=== PATIENT | female | born 1970 | race Caucasian/White ===

== ENCOUNTER 2018-09-13 11:00 | Emergency (ER) | payer BC ==
--- NOTE | 2018-09-13 12:17 | EDM.PDOC ---
ED HPI GENERAL MEDICAL PROBLEM - General Chief Complaint: General Stated Complaint: LEFT HAND REDNESS AND SWELLING Time Seen by Provider: 09/13/18 11:30 Source of Information: Reports: Patient History Limitations: Reports: No Limitations - History of Present Illness INITIAL COMMENTS - FREE TEXT/NARRATIVE: 48 YO WM presents to ER complaining of left hand swelling and redness x 2 days after getting scratched by her cat. Pt reports the cat is up to date on immunizations. Pt reports redness and swelling are circumferential to left hand excluding wrist and 1st-3rd fingers. Pt denies fever/chills, arm pain, or any injury to hand other than cat scratch. Onset Date: 09/11/18 Duration: Day(s): (2) Location: Reports: Upper Extremity, Left Quality: Reports: Ache Severity: Mild Improves with: Reports: None Worsens with: Reports: None Associated Symptoms: Reports: No Other Symptoms. Denies: Fever/Chills Left Hand Pain Score (Numeric/FACES): 5 - Related Data Allergies Allergy/AdvReac Type Severity Reaction Status Date / Time codeine Allergy Hives Verified 09/13/18 11:23 Home Meds: Home Meds Amoxicillin/Potassium Clav [Augmentin 875-125 Tablet] 1 each PO BID #14 tablet 09/13/18 [Rx] Divalproex Sodium [Divalproex Sodium ER] 500 mg PO BID 09/13/18 [History] Social & Family History - Tobacco Use Smoking Status *Q: Former Smoker Used Tobacco, but Quit: Yes Month/Year Tobacco Last Used: quit 1994 - Caffeine Use Caffeine Use: Reports: Coffee, Soda, Tea - Recreational Drug Use Recreational Drug Use: No ED ROS GENERAL - Review of Systems Review Of Systems: See Below Constitutional: Reports: No Symptoms HEENT: Reports: No Symptoms Respiratory: Reports: No Symptoms Cardiovascular: Reports: No Symptoms Endocrine: Reports: No Symptoms GI/Abdominal: Reports: No Symptoms : Reports: No Symptoms Musculoskeletal: Reports: No Symptoms Skin: Reports: Erythema Neurological: Reports: No Symptoms Psychiatric: Reports: No Symptoms Hematologic/Lymphatic: Reports: No Symptoms Immunologic: Reports: No Symptoms ED EXAM, GENERAL - Physical Exam Exam: See Below Exam Limited By: No Limitations General Appearance: Alert, WD/WN, No Apparent Distress Head: Atraumatic, Normocephalic Neck: Normal Inspection, Supple, Non-Tender, Full Range of Motion Respiratory/Chest: No Respiratory Distress, Lungs Clear, Normal Breath Sounds, No Accessory Muscle Use, Chest Non-Tender Cardiovascular: Normal Peripheral Pulses, Regular Rate, Rhythm, No Edema, No Gallop, No JVD, No Murmur, No Rub GI/Abdominal: Normal Bowel Sounds, Soft, Non-Tender, No Organomegaly, No Distention, No Abnormal Bruit, No Mass Back Exam: Normal Inspection, Full Range of Motion, NT Extremities: Normal Range of Motion, No Pedal Edema, Normal Capillary Refill, Increased Warmth, Redness Neurological: Alert, Oriented, CN II-XII Intact, Normal Cognition, Normal Gait, Normal Reflexes, No Motor/Sensory Deficits Psychiatric: Normal Affect, Normal Mood Skin Exam: Erythema, Increased Warmth Lymphatic: No Adenopathy Course - Vital Signs Last Recorded V/S: Last Vital Signs Temp 36.8 C 09/13/18 11:18 Pulse 100 09/13/18 11:18 Resp 18 09/13/18 11:18 BP 129/70 09/13/18 11:18 Pulse Ox 96 09/13/18 11:18 Departure - Departure Time of Disposition: 12:22 Disposition: Home, Self-Care 01 Condition: Good Clinical Impression: Cellulitis of left hand - Discharge Information Prescriptions: Amoxicillin/Potassium Clav [Augmentin 875-125 Tablet] 1 each PO BID #14 tablet Instructions: Cellulitis, Adult Referrals: Rebeka Hutchinson MD [Primary Care Provider] - Additional Instructions: 1. discharge home 2. augmentin 875mg PO BID x 10 days 3. motrin 600mg PO Q6 PRN pain 4. ice to hand 5. follow up with PCP next 48 hours for recheck 6. return to ER for worsening symptoms - Assessment/Plan Assessment:: 1. cellulitis to left hand from cat scratch Plan: 1. discharge home 2. augmentin 875mg PO BID x 10 days 3. motrin 600mg PO Q6 PRN pain 4. ice to hand 5. follow up with PCP next 48 hours for recheck 6. return to ER for worsening symptoms
[2018-09-13] MEDS ORDERED: Amoxicillin/Clavulanate K 875-125 MG Tab PO SCH ×2 (12:30)
== END 2018-09-13 12:45 | disposition home or self-care (01) ==
LOC: KA.ED 11:00
DX: L03.114 Cellulitis of left upper limb (principal); Z88.5 Allergy status to narcotic agent; Z87.891 Personal history of nicotine dependence; W55.03XA Scratched by cat, initial encounter
CPT/HCPCS: 99283; A9270